=== PATIENT | female | born 1940 | race Caucasian/White ===

== ENCOUNTER 2018-03-23 10:02 | Outpatient (CLI) | payer MEDICARE ==
[2018-03-23] MEDS ORDERED: Gadobenate Dimeglumine 529 MG/1 ML (20ML VIAL) ONE (11:21)
--- NOTE | 2018-03-23 13:27 | MRI ---
BRAIN MRI WITH AND WITHOUT CONTRAST: Date: 03/23/18 COMPARISON: 12/15/17. CLINICAL INDICATION: Prior tumor resection, brain lab protocol, follow-up. FINDINGS: The ventricular system is stable in size. No new midline shift. Postsurgical encephalomalacia of righ t cerebellar hemisphere, posteromedially, redemonstrated with overlying scar of the occipital scalp a nd evidence of prior suboccipital craniectomy. Hemosiderin staining at the operative site of the righ t posterior fossa, as well as involving a prior catheter tract of right frontal lobe again seen. Ther e is no acute territorial infarction. IMPRESSION: Stable postoperative MRI brain. POS: [facility]
== END 2018-03-23 10:03 | disposition home or self-care (01) ==
LOC: MRI 10:02
PROVIDERS: ATTEND Neurological Surgery
DX: C79.31 Secondary malignant neoplasm of brain (principal)
CPT/HCPCS: 70553; 82565; A9579

== ENCOUNTER 2019-03-22 08:02 | Outpatient (CLI) | payer MEDICARE ==
--- NOTE | 2019-03-22 09:51 | CT ---
CT CHEST AND ABDOMEN AND PELVIS WITH IV CONTRAST: 03/22/2019 PROVIDED CLINICAL HISTORY: Lung cancer with brain metastasis. COMPARISON: 11/30/2018 FINDINGS: CHEST: Right paramediastinal mass appears unchanged with respect to the prior examination. The heart, pericardium, and great vessels demonstrate a stable CT appearance. The lungs are otherwise free of significant opacity. There is no pleural fluid or pneumothorax appar ent. No evidence for thoracic lymph node enlargement. ABDOMEN AND PELVIS: Stable hypodensities involving the liver, too small to definitively characterize. Stable left renal cysts. Solid abdominal organs demonstrate an otherwise unremarkable CT appearance. No bowel dilatation, inflammatory fat stranding, free fluid, or lymph node enlargement apparent, with limitations in evaluation of the pelvis due to extensive beam hardening artifact related to right to glenny hip arthroplasty. Cystic and solid right hemipelvic mass appears stable. The osseous structures demonstrate no concerning lytic or blastic lesions. Vascular calcifications a re again seen. Small fat-containing supraumbilical hernia. IMPRESSION: Stable examination. POS: [facility]
== END 2019-03-22 08:03 | disposition home or self-care (01) ==
LOC: CT 08:02
PROVIDERS: ATTEND Internal Medicine Hematology & Oncology
DX: C34.81 Malignant neoplasm of overlapping sites of right bronchus and lung (principal); C79.31 Secondary malignant neoplasm of brain; C91.11 Chronic lymphocytic leukemia of B-cell type in remission; D50.8 Other iron deficiency anemias
CPT/HCPCS: 71260; 74177; 82565

== ENCOUNTER 2019-07-27 10:44 | Outpatient (CLI) | payer MEDICARE ==
--- NOTE | 2019-07-27 11:47 | CT ---
CT OF THE CHEST, ABDOMEN AND PELVIS WITH IV CONTRAST INDICATION: History of lung malignancy and metastatic disease to the brain COMPARISON: Prior CT the chest, abdomen and pelvis dated March 22, 2019 and September 16, 2017 FINDINGS: CHEST: Lungs: The right paramediastinal mass is slightly smaller now measuring 2 x 1.3 cm were previously th is measured 2.4 x 1.6 cm on the prior exam. Surrounding scarring and radiation fibrotic change is stable. No new pulmonary nodule is demonstrated Pleural space: No effusion. Mediastinum: Small amount of enteric contrast is seen within the esophagus. No pathologically enlarge d lymph nodes are evident. Axilla: No pathologically enlarged lymph nodes. ABDOMEN: Lung bases: Clear Liver: Stable hepatic hypodensities, too small to characterize Gallbladder: Normal appearing. Pancreas: Normal. Adrenal glands: Normal. Spleen: Normal. Kidneys and ureters: Stable left renal cysts Vasculature: There are mild vascular calcifications seen involving the visualized vasculature. Lymph nodes:No lymphadenopathy. Free fluid in abdomen:No free fluid is evident. PELVIS: Small and large bowel: Normal Appendix:Not definitely seen Bladder: Mild bladder wall thickening Rectal and perirectal soft tissues:Normal. Reproductive structures: Stable mixed solid and cystic mass of the right adnexa measuring 7 x 3.8 cm. Slight prominence of the left adnexa is stable. Free fluid in pelvis: No free fluid is evident. Lymphadenopathy pelvis: No lymphadenopathy is evident. Osseous structures: There is diffuse osteopenia. There is scattered degenerative and osteoarthritic c hange present. Right total hip prosthesis appears unchanged. Soft tissues: Stable small fat-containing periumbilical hernia. IMPRESSION: 1. Stable CT evaluation of the thorax concerning the patient's lung malignancy. 2. Mild bladder wall thickening may reflect a component of cystitis. Recommend correlation with the c linical examination and laboratory values. 3. Stable mixed solid and cystic mass in the right adnexa. Slight prominence of the left adnexa is st able. 4. Enteric contrast within the esophagus may reflect esophageal dysmotility or reflux.
--- NOTE | 2019-07-27 13:46 | MRI ---
Brain MRI with and without contrast: 07/27/2019 COMPARISON: 03/24/2019 and 11/30/2018 HISTORY: Lung cancer, evaluate for intracranial metastatic disease TECHNIQUE: Multiplanar multisequence MR imaging of the brain obtained with and without contrast FINDINGS: The diffusion weighted imaging demonstrates no evidence for acute infarction. Imaged paranasal sinuses and mastoid air cells appear well aerated. There is no midline shift or mass effect. No ventricular enlargement. There is an area of signal alteration within the posterior medial aspect of the right cerebellar jatinder sphere. In this region there is decreased T1 and increased T2/FLAIR signal. There is evidence of prior suboccipital craniotomy. The area of signal alteration within the posterior medial aspect of th e right cerebellar hemispheres consistent with a postoperative cavity. The post contrast imaging demonstrates no significant enhancement in this region and these findings are stable when compared to 03/24/2019. There is evidence of prior calvarial surgery in the right frontal region near the vertex. The 11/30/2018 exam demonstrated a ring-enhancing lesion within the posterior right temporal lobe. Thi s exam does not discretely demonstrate that lesion. No supratentorial lesion is apparent on this exam. Continued surveillance suggested. IMPRESSION: Postoperative changes within the right frontal region and posterior fossa, stable. Previo usly noted lesion within the right temporal lobe is no longer visualized. No new lesions are seen. Continued surveillance advised.
[2019-07-27] MEDS ORDERED: Iopamidol 370 76% 100 ML VIAL ONE (13:54)
[2019-07-27] MEDS ORDERED: Magnevist 469MG/ML 20 ML VIAL ONE (14:34)
== END 2019-07-27 10:45 | disposition home or self-care (01) ==
LOC: CT 10:44
PROVIDERS: ATTEND Internal Medicine Hematology & Oncology
DX: C79.31 Secondary malignant neoplasm of brain (principal); C34.81 Malignant neoplasm of overlapping sites of right bronchus and lung; C91.11 Chronic lymphocytic leukemia of B-cell type in remission; D50.8 Other iron deficiency anemias; N32.81 Overactive bladder; E27.8 Other specified disorders of adrenal gland
CPT/HCPCS: 70553; 71260; 74177; 82565; A9579; Q9967

== ENCOUNTER 2019-11-16 07:59 | Outpatient (CLI) | payer MEDICARE ==
[2019-11-16 08:29] LABS: Estimated GFR-MDRD - POC Greater than 90
--- NOTE | 2019-11-16 10:31 | MRI ---
MRI BRAIN WITH AND WITHOUT CONTRAST: DATE: 11/16/2019 HISTORY: 79-year-old female with brain metastasis from lung cancer. Status post chemotherapy and radiation the rapy. COMPARISON: 07/27/2019 TECHNIQUE: Multiplanar, multisequence MRI of the brain performed pre- and post-IV injection of gadolinium based contrast agent. FINDINGS: The small round 0.7 x 0.7 cm ring-enhancing lesion in the right temporal lobe demonstrated on the MRI of 11/30/2018 had resolved on subsequent MRIs. There is no evidence of recurrence on the current MRI in this location. Again noted is the right frontal old reagan hole, and associated very thin ventriculostomy tract leadin g to the right lateral ventricle, unchanged. Again noted is the region of encephalomalacia and gliosis with hemosiderin stain in the medial superi or aspect of the right cerebellar hemisphere, representing site of prior metastatic tumor resection. There is no significant new enhancement in this location to indicate tumor recurrence at t his site. Again noted is the midline occipital craniotomy defect. The only interval change since 07/27/2019 is a new right mastoid effusion. No new intracranial metastatic lesions. No obstructive hydrocephalus, mass effect, midline shift, acute hemorrhage, or extra-axial fluid nory ection. No dural venous sinus thrombosis. IMPRESSION: 1) no evidence of active intracranial metastatic malignant lesion. 2) postsurgical changes in posterior fossa, with scar from previously resected right cerebellar metas tasis. 3) old right frontal reagan hole for old right ventriculostomy. 4) new right mastoid effusion.
--- NOTE | 2019-11-16 11:52 | CT ---
CHEST AND ABDOMEN AND PELVIS CT SCAN WITH IV CONTRAST: Date: 11/16/2019 HISTORY: Follow-up lung cancer. COMPARISON: 07/27/2019. FINDINGS: Stable medial right upper lobe scar/mass. Small stable mediastinal lymph nodes, but no evidence for a denopathy. Gas noted in the esophagus with probable small hiatal hernia. This may well be related to reflux. No pleural effusion or pericardial effusion or other acute process. Several small stable liver cysts. Gallbladder, common bile duct, pancreas, spleen, and adrenal glands are unremarkable. Small stable bilateral renal cysts. No renal hydronephrosis. No CT evidence for ac armando appendicitis. Overall stable appearing complex cystic mass in the right adnexa. No abscess, adeno chan, or abnormal fluid collection within the abdomen or pelvis. Postop total right hip replacement. IMPRESSION: Overall stable chest, abdomen, and pelvic CT scan, with stable scar/mass in the medial right upper lo be and stable complex right ovarian/adnexal cystic mass. POS: [facility]
[2019-11-16] MEDS ORDERED: Iopamidol 370 76% 100 ML VIAL ONE (13:25)
[2019-11-16] MEDS ORDERED: Magnevist 469MG/ML 20 ML VIAL ONE (13:43)
== END 2019-11-16 08:00 | disposition home or self-care (01) ==
LOC: CT 07:59
PROVIDERS: ATTEND Internal Medicine Hematology & Oncology
DX: C34.81 Malignant neoplasm of overlapping sites of right bronchus and lung (principal); C79.31 Secondary malignant neoplasm of brain; R91.8 Other nonspecific abnormal finding of lung field; N83.8 Other noninflammatory disorders of ovary, fallopian tube and broad ligament; Z98.890 Other specified postprocedural states
CPT/HCPCS: 70553; 71260; 74177; 82565; A9579; Q9967

== ENCOUNTER 2020-05-22 07:59 | Outpatient (CLI) | payer MEDICARE ==
--- NOTE | 2020-05-22 10:42 | CT ---
CHEST AND ABDOMEN AND PELVIC CT SCAN WITH IV CONTRAST: HISTORY: Malignant neoplasm of bronchus. History of lung cancer with brain metastasis with prior chemotherapy and radiation. COMPARISON: 11/16/2019. FINDINGS: Stable right upper lobe medial pleural-based scar/mass. Small hiatal hernia. No pleural effusion or pericardial effusion. No pulmonary metaphysis. Small liver cysts, stable. Small bilateral renal cysts, stable. Several calcifications in the pancr eas, evidence for prior chronic pancreatitis. No evidence for abdominal or retroperitoneal adenopath y. Stable nodularity in the uterus somewhat better demonstrated on today's study. Stable right adne xal cystic complex mass. IMPRESSION: Overall stable chest, abdomen, and pelvic CT scan. No significant new process. No new metastasis. POS: [facility]
[2020-05-22] MEDS ORDERED: Iopamidol 370 76% 100 ML VIAL ONE (12:50)
== END 2020-05-22 08:00 | disposition home or self-care (01) ==
LOC: BICCT 07:59
PROVIDERS: ATTEND Internal Medicine Hematology & Oncology
DX: C34.81 Malignant neoplasm of overlapping sites of right bronchus and lung (principal); C91.11 Chronic lymphocytic leukemia of B-cell type in remission
CPT/HCPCS: 36415; 71260; 74177; 80053; 82565; 82728; 85025; Q9967

== ENCOUNTER 2020-06-19 09:46 | Outpatient (CLI) | payer MEDICARE ==
--- NOTE | 2020-06-19 10:53 | MRI ---
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 COMPARISON: 03/21/2020 TECHNIQUE: Multiplanar, multisequence MRI of the brain performed pre- and post-IV injection of gadolinium based contrast agent. FINDINGS: Old occipital craniotomy defect. Old right anterior upper frontal bone reagan hole. Small to moderate-sized region of encephalomalacia and gliosis, with hemosiderin stain, at the right cerebellar hemisphere. This also involves the cerebellar vermis. No abnormal enhancement in this tumor resection site. No abnormal enhancement, mass, mass effect, or recent hemorrhage, anywhere else in the brain. No obstructive hydrocephalus or restricted diffusion. No significant chronic ischemic white matter changes. Mild, age-appropriate diffuse brain parenchymal volume loss. No interval change overall. IMPRESSION: 1) old postsurgical changes involving right cerebellar hemisphere and cerebellar vermis representing site of neoplastic tumor resection. 2) no evidence of recurrent, residual, or new metastatic disease intracranially. 3) no interval change overall.
[2020-06-19] MEDS ORDERED: Magnevist 469MG/ML 20 ML VIAL ONE (13:47)
== END 2020-06-19 09:47 | disposition home or self-care (01) ==
LOC: MRI 09:46
PROVIDERS: ATTEND Internal Medicine Hematology & Oncology
DX: C34.81 Malignant neoplasm of overlapping sites of right bronchus and lung (principal); C79.31 Secondary malignant neoplasm of brain; Z98.890 Other specified postprocedural states
CPT/HCPCS: 70553

== ENCOUNTER 2020-09-25 09:22 | Outpatient (CLI) | payer MEDICARE ==
--- NOTE | 2020-09-25 10:59 | MRI ---
Exam: Brain MRI with and without contrast HISTORY: Lung cancer. Brain metastases. Three-month follow-up. No current complaints. COMPARISON: 06/19/2020, 11/16/2019, 03/21/2020 FINDINGS: Gradient echo sequence: No hemorrhage Calvarium: Appropriate T1 marrow signal intensity Midline brain parenchyma: Unremarkable Cerebrum:No parenchymal mass, mass effect or midline shift. Age-appropriate atrophy. Cortical cain-wh ite matter differentiation is preserved. Stable minimal T2 and FLAIR white matter hyperintensities. Cerebellum: Stable gliosis and volume loss in the medial right cerebellar hemisphere. Stable linear e nhancement favoring vascular enhancement versus post treatment scar. There is no evidence of recurrent disease. There are postoperative changes in the overlying calvarium is scalp. Ventricles: No evidence of hydrocephalus. Sinuses and mastoid air cells: Mild mucosal disease of the paranasal sinuses. Diffusion: Central arterial flow is maintained. Absent restricted diffusion. Postcontrast images: No pathologic enhancement of the brain parenchyma. IMPRESSION: 1. No evidence of active intracranial metastatic/malignant lesion. 2. Stable postsurgical changes in the posterior fossa. Stable scar in the right cerebellar hemisphere .
[2020-09-25] MEDS ORDERED: Magnevist 469MG/ML 20 ML VIAL ONE (13:59)
== END 2020-09-25 09:23 | disposition home or self-care (01) ==
LOC: TBSIIMAG 09:22
PROVIDERS: ATTEND Internal Medicine Hematology & Oncology
DX: C34.81 Malignant neoplasm of overlapping sites of right bronchus and lung (principal); C79.31 Secondary malignant neoplasm of brain; Z98.890 Other specified postprocedural states; G93.89 Other specified disorders of brain
CPT/HCPCS: 70553; 80053; 82565

== ENCOUNTER 2020-12-18 08:58 | Outpatient (CLI) | payer MEDICARE ==
[~2020-12-18 08:58] MED LIST: Iopamidol 370 76% 100 ML VIAL ONE
== END 2020-12-18 08:59 | disposition home or self-care (01) ==
LOC: CT 08:58
PROVIDERS: ATTEND Internal Medicine Hematology & Oncology
DX: C34.81 Malignant neoplasm of overlapping sites of right bronchus and lung (principal); C79.31 Secondary malignant neoplasm of brain; Z98.890 Other specified postprocedural states
CPT/HCPCS: 70553; 71260; 74177; 82565; Q9967

== ENCOUNTER 2021-05-21 08:52 | Outpatient (CLI) | payer MEDICARE | END 2021-05-21 08:53 | disposition home or self-care (01) | LOC: BICMAMMO 08:52 | PROVIDERS: ATTEND Family Medicine | DX: Z12.31 Encounter for screening mammogram for malignant neoplasm of breast (principal); Z13.820 Encounter for screening for osteoporosis; M81.0 Age-related osteoporosis without current pathological fracture | CPT/HCPCS: 77063; 77067; 77080 ==

== ENCOUNTER 2021-06-25 08:54 | Outpatient (CLI) | payer MEDICARE ==
[2021-06-25] MEDS ORDERED: Iopamidol 370 76% 100 ML VIAL ONE (16:05)
[2021-06-25] MEDS ORDERED: Magnevist 469MG/ML 20 ML VIAL ONE (16:16)
== END 2021-06-25 08:55 | disposition home or self-care (01) ==
LOC: CT 08:54
PROVIDERS: ATTEND Internal Medicine Hematology & Oncology
DX: C34.81 Malignant neoplasm of overlapping sites of right bronchus and lung (principal); C91.11 Chronic lymphocytic leukemia of B-cell type in remission; C79.31 Secondary malignant neoplasm of brain; N83.8 Other noninflammatory disorders of ovary, fallopian tube and broad ligament; M85.88 Other specified disorders of bone density and structure, other site; Z98.2 Presence of cerebrospinal fluid drainage device; Z98.890 Other specified postprocedural states
CPT/HCPCS: 70553; 71260; 74177; 82565

== ENCOUNTER 2022-06-12 10:57 | Outpatient (CLI) | payer MEDICARE | END 2022-06-12 10:58 | disposition home or self-care (01) | LOC: BICMAMMO 10:57 | PROVIDERS: ATTEND Family Medicine | DX: Z12.31 Encounter for screening mammogram for malignant neoplasm of breast (principal) | CPT/HCPCS: 77063; 77067 ==

== ENCOUNTER 2022-06-19 08:45 | Outpatient (CLI) | payer MEDICARE ==
[2022-06-19] MEDS ORDERED: Iopamidol 370 76% 100 ML VIAL ONE (08:54)
[2022-06-19] MEDS ORDERED: Magnevist 469MG/ML 20 ML VIAL ONE (09:09)
== END 2022-06-19 08:46 | disposition home or self-care (01) ==
LOC: CT 08:45
PROVIDERS: ATTEND Internal Medicine Hematology & Oncology
DX: C34.81 Malignant neoplasm of overlapping sites of right bronchus and lung (principal); C79.31 Secondary malignant neoplasm of brain; D50.8 Other iron deficiency anemias; N32.89 Other specified disorders of bladder; J98.4 Other disorders of lung; N83.8 Other noninflammatory disorders of ovary, fallopian tube and broad ligament
CPT/HCPCS: 70553; 71260; 74177; A9579; Q9967

== ENCOUNTER 2022-09-18 09:14 | Outpatient (CLI) | payer MEDICARE | END 2022-09-18 09:15 | disposition home or self-care (01) | LOC: BICMAMMO 09:14 | PROVIDERS: ATTEND Internal Medicine Rheumatology | DX: M81.0 Age-related osteoporosis without current pathological fracture (principal); M85.852 Other specified disorders of bone density and structure, left thigh | CPT/HCPCS: 77080 ==

== ENCOUNTER 2022-12-18 08:32 | Outpatient (CLI) | payer MEDICARE | END 2022-12-18 08:33 | disposition home or self-care (01) | LOC: CT 08:32 | PROVIDERS: ATTEND Internal Medicine Hematology & Oncology | DX: C34.81 Malignant neoplasm of overlapping sites of right bronchus and lung (principal); C91.11 Chronic lymphocytic leukemia of B-cell type in remission; C79.31 Secondary malignant neoplasm of brain; D50.8 Other iron deficiency anemias; K76.89 Other specified diseases of liver; N28.1 Cyst of kidney, acquired; K63.89 Other specified diseases of intestine; K86.89 Other specified diseases of pancreas; M89.9 Disorder of bone, unspecified; Z98.890 Other specified postprocedural states | CPT/HCPCS: 70553; 71260; 74177; 82565 ==

== ENCOUNTER 2022-12-31 09:18 | Outpatient (CLI) | payer MEDICARE | END 2022-12-31 09:19 | disposition home or self-care (01) | LOC: MRI 09:18 → SCSMRI 09:19 | PROVIDERS: ATTEND Internal Medicine Hematology & Oncology | DX: C34.81 Malignant neoplasm of overlapping sites of right bronchus and lung (principal); C79.31 Secondary malignant neoplasm of brain; K86.2 Cyst of pancreas | CPT/HCPCS: 74183 ==

== ENCOUNTER 2023-06-19 15:00 | Outpatient (CLI) | payer MEDICARE | END 2023-06-19 15:01 | disposition home or self-care (01) | LOC: ULT 15:00 | PROVIDERS: ATTEND Family Medicine | DX: N94.89 Other specified conditions associated with female genital organs and menstrual cycle (principal); R93.41 Abnormal radiologic findings on diagnostic imaging of renal pelvis, ureter, or bladder | CPT/HCPCS: 76856 ==

== ENCOUNTER 2023-06-24 13:02 | Outpatient (CLI) | payer MEDICARE ==
[~2023-06-24 13:02] MED LIST changes: -Iopamidol 370 76% 100 ML VIAL ONE; +Magnevist 469MG/ML 20 ML VIAL ONE
== END 2023-06-24 13:03 | disposition home or self-care (01) ==
LOC: MRI 13:02
PROVIDERS: ATTEND Internal Medicine Hematology & Oncology
DX: C34.81 Malignant neoplasm of overlapping sites of right bronchus and lung (principal); C79.31 Secondary malignant neoplasm of brain; Z98.890 Other specified postprocedural states
CPT/HCPCS: 70553; A9579

== ENCOUNTER 2023-09-15 10:55 | Outpatient (CLI) | payer MEDICARE | END 2023-09-15 10:56 | disposition home or self-care (01) | LOC: BICMAMMO 10:55 | PROVIDERS: ATTEND Family Medicine | DX: Z12.31 Encounter for screening mammogram for malignant neoplasm of breast (principal) | CPT/HCPCS: 77063; 77067 ==

== ENCOUNTER 2023-11-26 09:02 | Outpatient (CLI) | payer MEDICARE | END 2023-11-26 09:03 | disposition home or self-care (01) | LOC: CT 09:02 | PROVIDERS: ATTEND Internal Medicine Hematology & Oncology | DX: C34.81 Malignant neoplasm of overlapping sites of right bronchus and lung (principal); C79.31 Secondary malignant neoplasm of brain; K31.89 Other diseases of stomach and duodenum; N32.89 Other specified disorders of bladder; N83.8 Other noninflammatory disorders of ovary, fallopian tube and broad ligament | CPT/HCPCS: 71260; 74177; 82565 ==

== ENCOUNTER 2024-03-04 09:07 | Outpatient (CLI) | payer MEDICARE ==
[2024-03-04] MEDS ORDERED: Magnevist 469MG/ML 20 ML VIAL ONE (12:28)
== END 2024-03-04 09:08 | disposition home or self-care (01) ==
LOC: MRI 09:07
PROVIDERS: ATTEND Radiology Radiation Oncology
DX: C79.31 Secondary malignant neoplasm of brain (principal); C34.90 Malignant neoplasm of unspecified part of unspecified bronchus or lung; R90.82 White matter disease, unspecified
CPT/HCPCS: 70553; 82565

== ENCOUNTER 2024-07-06 08:32 | Outpatient (CLI) | payer MEDICARE ==
[2024-07-06] MEDS ORDERED: Iopamidol 370 76% 100 ML VIAL ONE (10:40)
== END 2024-07-06 08:33 | disposition home or self-care (01) ==
LOC: CT 08:32
PROVIDERS: ATTEND Internal Medicine Hematology & Oncology
DX: C34.81 Malignant neoplasm of overlapping sites of right bronchus and lung (principal); C79.31 Secondary malignant neoplasm of brain; K31.89 Other diseases of stomach and duodenum; Z98.890 Other specified postprocedural states; N32.89 Other specified disorders of bladder; N83.8 Other noninflammatory disorders of ovary, fallopian tube and broad ligament
CPT/HCPCS: 36415; 71260; 74177; 82565; Q9967

== ENCOUNTER 2024-09-22 09:25 | Outpatient (CLI) | payer MEDICARE ==
[2024-09-22] MEDS ORDERED: Iopamidol 370 76% 100 ML VIAL ONE (14:10)
== END 2024-09-22 09:26 | disposition home or self-care (01) ==
LOC: CT 09:25
DX: R31.9 Hematuria, unspecified (principal); N32.9 Bladder disorder, unspecified; R19.03 Right lower quadrant abdominal swelling, mass and lump; J20.9 Acute bronchitis, unspecified; J18.0 Bronchopneumonia, unspecified organism
CPT/HCPCS: 36415; 74178; 82565

== ENCOUNTER 2024-09-30 10:42 | Outpatient (CLI) | payer MEDICARE ==
[2024-09-30] MEDS ORDERED: Magnevist 469MG/ML 20 ML VIAL ONE (15:55)
== END 2024-09-30 10:43 | disposition home or self-care (01) ==
LOC: MRI 10:42
PROVIDERS: ATTEND Radiology Radiation Oncology
DX: C79.31 Secondary malignant neoplasm of brain (principal); G93.89 Other specified disorders of brain; Z98.890 Other specified postprocedural states
CPT/HCPCS: 70553; 76376